=== PATIENT | female | born 1990 | race African-American/Black ===

== ENCOUNTER 2016-10-25 11:51 | Emergency (ER) | payer BC ==
[~2016-10-25] VITALS: Ht 160 cm; Wt 100.0 kg
[2016-10-25 11:53] VITALS: BP 156/108; PULSE 152; RESP 16; TEMP 98.2; O2SAT 98
--- NOTE | 2016-10-25 11:56 | PD ---
Physical Exam Date Seen by Provider: Oct 25, 2016 Time Seen by Provider: 11:54 Data Data Last Documented VS Vital Signs Date Time Temp Pulse Resp B/P Pulse Ox O2 Delivery O2 Flow Rate FiO2 10/25/16 11:53 98.2 152 16 156/108 98 MDM Supervised Visit with FISH: No Narrative Course 25 YO 14 week F with complaint of tachycardia at Dr. Lira's (OB) office today. No other complaints. Vitals reviewed. Patient seen in triage, awaiting bed placement. Mae Soto Oct 25, 2016 11:56
--- NOTE | 2016-10-25 12:07 | PD ---
HPI Chief Complaint: Cardiac Complaint Time Seen by Provider: 12:07 Travel History International Travel<30 days: No Contact w/Intl Traveler<30days: No Traveled to known affect area: No History of Present Illness HPI 25-year-old female who is approximately 14 weeks gestation presents to the emergency department for evaluation of elevated heart rate. Patient states that she was instructed to come to the emergency department due to this sustained heart rate. She states that they did not take vital signs, she would have not ever known that her heart rate was high. She denies any chest pain or shortness of breath. Denies any recent illnesses, fever, chills. No cough or chest congestion. She states that she has not had any abdominal pain, cramping , vaginal bleeding, or discharge. She states that she was never aware of a high heart rate during her first . She has no other symptoms to report at this time. COUNT INCLUDES THE [facility] Past Medical History Medical History: Denies Significant Hx Diminished Hearing: No Tetanus Vaccination: > 5 Years Influenza Vaccination: Yes ?: LMP: 07/17/16 : 2 Para: 1 Past Surgical History Other Surgery: Yes (growth on overy at age 13) Social History Alcohol Use: No Tobacco Use: No Substance Use: No Allergies-Medications (Allergen,Severity, Reaction): Coded Allergies: No Known Allergies (Unverified , 10/25/16) Reported Meds & Prescriptions Reported Meds & Active Scripts Active Keflex (Cephalexin) 500 Mg Cap 500 Mg PO Q12H 7 Days Review of Systems Except as stated in HPI: all other systems reviewed are Neg Physical Exam Narrative GENERAL: Well-nourished female patient, in no acute distress SKIN: Focused skin assessment warm/dry. HEAD: Atraumatic. Normocephalic. EYES: Pupils equal and round. No scleral icterus. No injection or drainage. ENT: No nasal bleeding or discharge. Mucous membranes pink and moist. NECK: Trachea midline. No JVD. CARDIOVASCULAR: Tachycardic rate and rhythm. No murmur appreciated. RESPIRATORY: No accessory muscle use. Clear to auscultation. Breath sounds equal bilaterally. GASTROINTESTINAL: Abdomen soft, non-tender, nondistended. Hepatic and splenic margins not palpable. MUSCULOSKELETAL: No obvious deformities. No clubbing. No cyanosis. No edema. NEUROLOGICAL: Awake and alert. No obvious cranial nerve deficits. Motor grossly within normal limits. Normal speech. PSYCHIATRIC: Appropriate mood and affect; insight and judgment normal. Data Data Last Documented VS Vital Signs Date Time Temp Pulse Resp B/P Pulse Ox O2 Delivery O2 Flow Rate FiO2 10/25/16 14:08 82 17 120/70 98 10/25/16 11:53 98.2 Orders Electrocardiogram (10/25/16 ) Iv Access Insert/Monitor (10/25/16 12:06) Complete Blood Count With Diff (10/25/16 12:06) Comprehensive Metabolic Panel (10/25/16 12:06) Urinalysis - C+S If Indicated (10/25/16 12:06) Sodium Chlor 0.9% 1000 Ml Inj (Ns 1000 M (10/25/16 12:15) Sodium Chlor 0.9% 1000 Ml Inj (Ns 1000 M (10/25/16 12:15) Thyroid Stimulating Hormone (10/25/16 12:09) Urine Culture (10/25/16 13:00) Labs Laboratory Tests Test 10/25/16 10/25/16 12:15 13:00 White Blood Count 12.7 TH/MM3 Red Blood Count 5.05 MIL/MM3 Hemoglobin 13.3 GM/DL Hematocrit 40.4 % Mean Corpuscular Volume 80.1 FL Mean Corpuscular Hemoglobin 26.4 PG Mean Corpuscular Hemoglobin 33.0 % Concent Red Cell Distribution Width 13.7 % Platelet Count 243 TH/MM3 Mean Platelet Volume 8.6 FL Neutrophils (%) (Auto) 72.6 % Lymphocytes (%) (Auto) 17.6 % Monocytes (%) (Auto) 8.6 % Eosinophils (%) (Auto) 1.0 % Basophils (%) (Auto) 0.2 % Neutrophils # (Auto) 9.2 TH/MM3 Lymphocytes # (Auto) 2.2 TH/MM3 Monocytes # (Auto) 1.1 TH/MM3 Eosinophils # (Auto) 0.1 TH/MM3 Basophils # (Auto) 0.0 TH/MM3 CBC Comment DIFF FINAL Differential Comment Sodium Level 138 MEQ/L Potassium Level 3.7 MEQ/L Chloride Level 106 MEQ/L Carbon Dioxide Level 21.8 MEQ/L Anion Gap 10 MEQ/L Blood Urea Nitrogen 5 MG/DL Creatinine 0.64 MG/DL Estimat Glomerular Filtration 138 ML/MIN Rate Random Glucose 95 MG/DL Calcium Level 9.7 MG/DL Total Bilirubin 0.1 MG/DL Aspartate Amino Transf 15 U/L (AST/SGOT) Alanine Aminotransferase 22 U/L (ALT/SGPT) Alkaline Phosphatase 81 U/L Total Protein 8.1 GM/DL Albumin 3.2 GM/DL Thyroid Stimulating Hormone 1.010 uIU/ML 3rd Gen Urine Color LIGHT-YELLOW Urine Turbidity HAZY Urine pH 7.5 Urine Specific Diller 1.005 Urine Protein NEG mg/dL Urine Glucose (UA) NEG mg/dL Urine Ketones NEG mg/dL Urine Occult Blood NEG Urine Nitrite NEG Urine Bilirubin NEG Urine Urobilinogen LESS THAN 2.0 MG/DL Urine Leukocyte Esterase LARGE Urine RBC 2 /hpf Urine WBC 4 /hpf Urine Squamous Epithelial 13 /hpf Cells Urine Transitional Epithelial <1 /hpf Cells Urine Bacteria MOD /hpf Urine Hyaline Casts 1 /lpf Microscopic Urinalysis Comment CULTURE INDICATED MDM Medical Decision Making Medical Screen Exam Complete: Yes Emergency Medical Condition: Yes Medical Record Reviewed: Yes Differential Diagnosis Dehydration versus electrolyte abnormality versus SVT in versus tachycardia, unspecified versus PE Narrative Course 25 year-old female presents to emergency department for evaluation of elevated heart rate. Patient has seen heart rate greater than 140bpm here in the emergency department initially. It is irregular rhythm. She denies any symptoms. She states that she feels well. She appears without distress. CBC, CMP, UA are ordered. Patient is given 2 L normal saline fluid. After the first liter of normal saline is administered, patient's heart rate decreases to the 110s. Laboratory Tests Test 10/25/16 10/25/16 12:15 13:00 White Blood Count 12.7 TH/MM3 Red Blood Count 5.05 MIL/MM3 Hemoglobin 13.3 GM/DL Hematocrit 40.4 % Mean Corpuscular Volume 80.1 FL Mean Corpuscular Hemoglobin 26.4 PG Mean Corpuscular Hemoglobin 33.0 % Concent Red Cell Distribution Width 13.7 % Platelet Count 243 TH/MM3 Mean Platelet Volume 8.6 FL Neutrophils (%) (Auto) 72.6 % Lymphocytes (%) (Auto) 17.6 % Monocytes (%) (Auto) 8.6 % Eosinophils (%) (Auto) 1.0 % Basophils (%) (Auto) 0.2 % Neutrophils # (Auto) 9.2 TH/MM3 Lymphocytes # (Auto) 2.2 TH/MM3 Monocytes # (Auto) 1.1 TH/MM3 Eosinophils # (Auto) 0.1 TH/MM3 Basophils # (Auto) 0.0 TH/MM3 CBC Comment DIFF FINAL Differential Comment Sodium Level 138 MEQ/L Potassium Level 3.7 MEQ/L Chloride Level 106 MEQ/L Carbon Dioxide Level 21.8 MEQ/L Anion Gap 10 MEQ/L Blood Urea Nitrogen 5 MG/DL Creatinine 0.64 MG/DL Estimat Glomerular Filtration 138 ML/MIN Rate Random Glucose 95 MG/DL Calcium Level 9.7 MG/DL Total Bilirubin 0.1 MG/DL Aspartate Amino Transf 15 U/L (AST/SGOT) Alanine Aminotransferase 22 U/L (ALT/SGPT) Alkaline Phosphatase 81 U/L Total Protein 8.1 GM/DL Albumin 3.2 GM/DL Thyroid Stimulating Hormone 1.010 uIU/ML 3rd Gen Urine Color LIGHT-YELLOW Urine Turbidity HAZY Urine pH 7.5 Urine Specific Diller 1.005 Urine Protein NEG mg/dL Urine Glucose (UA) NEG mg/dL Urine Ketones NEG mg/dL Urine Occult Blood NEG Urine Nitrite NEG Urine Bilirubin NEG Urine Urobilinogen LESS THAN 2.0 MG/DL Urine Leukocyte Esterase LARGE Urine RBC 2 /hpf Urine WBC 4 /hpf Urine Squamous Epithelial 13 /hpf Cells Urine Transitional Epithelial <1 /hpf Cells Urine Bacteria MOD /hpf Urine Hyaline Casts 1 /lpf Microscopic Urinalysis Comment CULTURE INDICATED CBC is with mild leukocytosis of 12.7, to be expected with . CMP is without acute concern. TSH is 1.010. Urinalysis is hazy with large leukocyte esterase, moderate bacteria. Cultures indicated. Due to the patient being and bacteria in her urine, she'll be started on Keflex by mouth for UTI. After second liter of normal saline is administered, patient's heart rate has decreased into the 80s and 90s. I have discussed the patient with my attending physician Dr. Fortune. With the patient be completely asymptomatic and response to IV fluids, we feel at this time there is no indication to workup further however I did discuss with the patient if she develops any symptoms, pain, shortness of breath, chest return immediately. She agrees with this plan of care. Diagnosis Primary Impression: Tachycardia Additional Impressions: UTI (urinary tract infection) Qualified Code: N39.0 - Urinary tract infection without hematuria, site unspecified Qualified Code: Z3A.14 - 14 weeks gestation of Referrals: Filemon Lira MD Primary Care Physician Patient Instructions: General Instructions, Tachycardia (ED), Urinary Tract Infection in (ED) Additional Instructions: Maintain adequate oral hydration Follow-up with your primary care provider Follow-up with Dr. Lira Monitor pulse and return immediately with any acute worsening of symptoms Med/Other Pt SpecificInfo: Prescription(s) given Scripts Cephalexin (Keflex)500 Mg [id number] Mg PO Q12H 7 Days Ref 0 Prov:Jennifer Cantu 10/25/16 Disposition: 01 DISCHARGE HOME Condition: Stable Jennifer Cantu Oct 25, 2016 12:07
[2016-10-25] MEDS ORDERED: SODIUM CHLOR 0.9% 1000 ML INJ 1,000 ML IV ONE ×2 (12:15)
[2016-10-25 12:34] LABS: AUTOMATED NEUTROPHIL # 9.2 TH/MM3 (1.8-7.7); BASOPHIL % 0.2 % (0.0-2.0); EOSINOPHIL # 0.1 TH/MM3 (0-0.4); HEMATOCRIT 40.4 % (35.0-46.0); HEMO FLAGS DIFF FINAL; LYMPH % 17.6 % (9.0-44.0); LYMPHOCYTE # 2.2 TH/MM3 (1.0-4.8); MEAN CELL VOLUME 80.1 FL (80.0-100.0); MEAN CORPUSCULAR HEMOGLOBIN 26.4 PG (27.0-34.0); MONO % 8.6 % (0.0-8.0); NEUT % 72.6 % (16.0-70.0); PLATELET COUNT 243 TH/MM3 (150-450); RED BLOOD COUNT 5.05 MIL/MM3 (4.00-5.30); RED CELL DISTRIBUTION WIDTH 13.7 % (11.6-17.2); WHITE BLOOD COUNT 12.7 TH/MM3 (4.0-11.0)
[2016-10-25 12:50] LABS: ANION GAP 10 MEQ/L (5-15); AST (GOT) 15 U/L (15-37); BICARBONATE 21.8 MEQ/L (21.0-32.0); BLOOD UREA NITROGEN 5 MG/DL (7-18); CHLORIDE 106 MEQ/L (98-107); GLOMERULAR FILTRATION RATE 138 ML/MIN (>89); POTASSIUM 3.7 MEQ/L (3.5-5.1); SODIUM (NA) 138 MEQ/L (136-145)
[2016-10-25 12:52] LABS: ALKALINE PHOSPHATASE 81 U/L (45-117); ALT (GPT) 22 U/L (10-53); TOTAL BILIRUBIN ADULT 0.1 MG/DL (0.2-1.0)
[2016-10-25 13:04] VITALS: PULSE 98
[2016-10-25 13:12] LABS: BACTERIA, URINE MOD /hpf; BLOOD, URINE NEG (NEG); GLUCOSE,URINE NEG (NEG); HYALINE CAST, URINE 1 /lpf (RARE); KETONE, URINE NEG (NEG); NITRITE,URINE NEG (NEG); PH, URINE 7.5 (5.0-8.5); SQUAMOUS EPITHELIAL CELL URINE 13 /hpf (0-5); TRANSITIONAL EPI CELLS, URINE <1 /hpf; URINE COLOR LIGHT-YELLOW (YELLW/STRAW)
[2016-10-25 13:13] LABS: COMMENT (UR) CULTURE INDICATED; CULTURE IF INDICATED CULTURE INDICATED
[2016-10-25] MEDS ORDERED: CEPH-460 PO (13:28)
[2016-10-25 14:08] VITALS: BP 120/70
--- NOTE | 2016-10-26 23:52 | EKG ---
Date Performed: 10/25/2016 Time Performed: 12:24:31 PTAGE: 25 years EKG: SINUS TACHYCARDIA NONSPECIFIC T-WAVE ABNORMALITY ABNORMAL RHYTHM ECG NO PREVIOUS TRACING DOCTOR: Leon Johnson Interpretating Date/Time 10/26/2016 23:51:38
== END 2016-10-25 14:21 | disposition home or self-care (01) ==
LOC: NEPE 11:51
DX: O26.892 Other specified pregnancy related conditions, second trimester (principal); R00.0 Tachycardia, unspecified; N39.0 Urinary tract infection, site not specified; Z3A.14 14 weeks gestation of pregnancy
CPT/HCPCS: 80053; 81001; 84443; 85025; 87086; 93005; 96360; 99284; J7030